=== PATIENT | male | born 1975 | race Caucasian/White ===

== ENCOUNTER 2021-12-25 20:36 | Observation (INO) | payer BC ==
[2021-12-25 21:07] LABS: #Basophils 0.1 10x3/uL (0.0-0.2); #Eosinphils 0.2 10x3/uL (0.0-0.5); #Monocytes 0.6 10x3/uL (0.0-1.1); #Neutrophils 6.1 10x3/uL (1.5-8.4); %Basophils 0.7 % (0.0-2.0); %Eosinophils 2.6 % (0.0-6.0); %Lymphocytes 22.5 % (18.0-47.0); Hemoglobin 14.8 g/dL (13.5-17.5); Mean Corpuscular HGB CONC 33.9 g/dL (32.0-36.0); Mean Corpuscular Hemoglobin 29.5 pg (27.0-33.0); Mean Platelet Volume 10.1 fl (7.4-10.4); Platelet Count 264 10x3/uL (150-450); RBC Distribution Width 13.2 % (11.5-14.5); Red Blood Cell (RBC) Count 5.01 10x6/uL (4.32-5.72); White Blood Cell (WBC) Count 9.1 10x3/uL (3.5-10.5)
[2021-12-25 21:13] LABS: Bilirubin Neg (Negative); Blood, Urine 10 (Negative); Clarity Clear (Clear); Glucose, Urine (Dipstick) Normal (Negative); Ketone, Urine Negative (Negative); Leukocyte Negative (Negative); Nitrite Negative (Negative); Protein, Urine (Dipstick) 15 mg/dl (Neg-Trace)
[2021-12-25 21:20] LABS: ALT (SGPT) 15 U/L (8-55); AST (SGOT) 16 U/L (5-34); Albumin 4.5 g/dL (3.5-5.0); Alkaline Phosphatase 49 U/L (40-110); Anion Gap 15 mmol/L (10-20); BUN (Urea Nitrogen) 13 mg/dL (8.9-20.6); Bilirubin, Total 0.6 mg/dL (0.2-1.2); Calc. Creatinine Clearance 0 mL/min (70-130); Calcium 9.7 mg/dL (7.8-10.44); Carbon Dioxide 24 mmol/L (22-29); Chloride 103 mmol/L (98-107); Glucose 104 mg/dL (70-105); Potassium 3.7 mmol/L (3.5-5.1); Protein, Total 7.5 g/dL (6.0-8.3); Sodium 138 mmol/L (136-145)
[2021-12-25 21:33] LABS: Bacteria/HPF Rare-Few HPF (None Seen); Mucous/LPF Rare LPF (<2+); RBC/HPF 0-3 HPF (0-3); Squamous Epithelial 0-3 HPF (0-3); WBC/HPF 0-3 HPF (0-3)
[2021-12-25 21:34] LABS: Sperm/HPF 1+ HPF (None Seen)
[2021-12-25] MEDS ORDERED: Piperacillin/Tazobactam 3.375 GM VIAL ONE (21:58)
[2021-12-25 23:01] LABS: SARS-CoV-2 NAA Rapid Test Not Detected (NotDetected)
[2021-12-25 23:18] VITALS: BMI 25.6
[2021-12-25] MEDS ORDERED: Morphine 4 MG/ML VIAL SLOW IVP PRN (23:25)
[2021-12-25] MEDS ORDERED: Ondansetron PF 4 MG/2 ML Vial IVP PRN (23:25)
[2021-12-25] MEDS: Lactated Ringer's 1,000 ML IV SCH (23:40)
[2021-12-26] MEDS: Piperacillin/Tazobactam 3.375 GM in Sodium Chloride 0.9% 100 ML IVPB SCH ×2 (02:20→10:28)
[2021-12-26] MEDS ORDERED: Ondansetron PF 4 MG/2 ML Vial IVP PRN (08:42)
[2021-12-26] MEDS ORDERED: Ropivacaine 0.5% HCl/PF (150 MG/30 ML VIAL) ONE (11:46)
[2021-12-26] MEDS ORDERED: Midazolam HCl 2 mg/2 ml Vial ONE (11:46)
[2021-12-26] MEDS ORDERED: PROPOFOL 20 ML ONE (11:46)
[2021-12-26] MEDS ORDERED: Fentanyl 100 MCG/2 ML VIAL ONE ×2 (11:46→12:23)
[2021-12-26] MEDS ORDERED: Bupivacaine PF 0.5% 30 ML VIAL ONE (12:06)
[2021-12-26] MEDS ORDERED: EPINEPHrine 1 MG/ML AMP ONE (12:07)
[2021-12-26] MEDS ORDERED: Ondansetron PF 4 MG/2 ML Vial ONE (12:34)
[2021-12-26] MEDS ORDERED: Morphine 4 MG/ML VIAL SLOW IVP PRN (13:13)
[2021-12-26] MEDS ORDERED: Acetaminophen 325 MG TAB PO PRN (13:13)
[2021-12-26] MEDS ORDERED: HYDROcodone/Acetaminophen 5/325 mg Tablet PO PRN ×2 (13:13)
[2021-12-26] MEDS ORDERED: Morphine 2 MG/ML VIAL SLOW IVP PRN (13:18)
[2021-12-26] MEDS: Lactated Ringer's 1,000 ML IV SCH (13:45)
[2021-12-26 16:25] VITALS: TEMP 98.1
[2021-12-26 17:20] VITALS: BP 110/78
== END 2021-12-26 16:29 | disposition home or self-care (01) ==
LOC: CSHERS 20:36 → CSHTELE 23:13 → UNDOADMOB 23:13 → CSHTELE 12-26 08:42
PROVIDERS: ADMIT Surgery; ATTEND Surgery
PROC: 0DTJ4ZZ Resection of Appendix, Percutaneous Endoscopic Approach (ICD-10-PCS; principal; 2021-12-26)
DX: K35.30 Acute appendicitis with localized peritonitis, without perforation or gangrene (principal); Z20.822 Contact with and (suspected) exposure to COVID-19
CPT/HCPCS: 74177; 80053; 81003; 81015; 85025; 88304; 96365; 96375; 96376; A4649; C1776; G0378; J0171; J2250; J2270; J2405; J2543; J2704; J2795; J3010; J3490; J7120; S0020; U0002

== ENCOUNTER 2025-06-22 08:16 | Outpatient (CLI) | payer BC | END 2025-06-22 08:17 | disposition home or self-care (01) | LOC: CJX 08:16 | PROVIDERS: ATTEND Internal Medicine | DX: M51.16 Intervertebral disc disorders with radiculopathy, lumbar region (principal) | CPT/HCPCS: 72148 ==